=== PATIENT | female | born 1995 | race American Indian/Alaskan Native ===

== ENCOUNTER 2018-07-18 11:10 | Emergency (ER) | payer OTHER ==
[2018-07-18 11:31] VITALS: BP 110/61
[2018-07-18 12:11] LABS: HCG Qualitative,Urine Negative (Negative)
[2018-07-18 12:14] LABS: Bilirubin,Urine NEG (Negative); Blood,Urine NEG (Negative); Color,Urine Yellow (Yellow); Mucus,Urine 3+ /HPF; Protein,Urine <15 mg/dL mg/dL (Negative)
--- NOTE | 2018-07-18 13:47 | Emergency Department Report ---
ED Abdominal Pain HPI - General Chief Complaint: Abdominal Pain Stated Complaint: ABD PAIN Time Seen by Provider: 07/18/18 12:54 Source: patient Mode of arrival: Ambulatory Limitations: No Limitations - History of Present Illness Initial Comments: 22-year-old female reports lower abdominal pain 2-3 weeks. Patient reports constipation for same time. Patient states has had problems in the past with constipation. States she tried MiraLAX at home without relief. Denies nausea, vomiting, fever. Patient reports foul smell the last time she had her menstrual cycle. However, patient denies any foul smell or vaginal discharge at this time. MD Complaint: abdominal pain -: week(s) (3) Location: suprapubic Radiation: none Migration to: no migration Severity: mild Quality: aching Consistency: intermittent Improves With: nothing Worsens With: nothing Associated Symptoms: dysuria. denies: nausea, vomiting, diarrhea, fever - Related Data Previous Rx's Medication Instructions Recorded Last Taken Type Docusate Sodium [Colace] 100 mg PO BID PRN #20 capsule 07/18/18 Unknown Rx Phenazopyridine [Pyridium] 200 mg PO BID #6 tab 07/18/18 Unknown Rx Sodium Phosphate,Napa-Dibasic 133 ml RC ONCE #1 enema 07/18/18 Unknown Rx [Fleet Enema] Sulfamethoxazole/Trimethoprim 1 each PO BID #6 tablet 07/18/18 Unknown Rx [Bactrim DS TAB] Allergies Allergy/AdvReac Type Severity Reaction Status Date / Time No Known Allergies Allergy Unverified 07/18/18 11:28 ED Review of Systems ROS: Stated complaint: ABD PAIN Other details as noted in HPI Comment: All other systems reviewed and negative Constitutional: denies: chills, fever Gastrointestinal: abdominal pain, constipation. denies: nausea, vomiting, diarrhea Genitourinary: dysuria. denies: frequency, hematuria, discharge ED Past Medical Hx - Past Medical History Previous Medical History?: No - Surgical History Past Surgical History?: No - Social History Smoking Status: Never Smoker Substance Use Type: None - Medications Home Medications: Home Medications Medication Instructions Recorded Confirmed Last Taken Type Docusate Sodium [Colace] 100 mg PO BID PRN #20 capsule 07/18/18 Unknown Rx Phenazopyridine [Pyridium] 200 mg PO BID #6 tab 07/18/18 Unknown Rx Sodium Phosphate,[place]-Dibasic 133 ml RC ONCE #1 enema 07/18/18 Unknown Rx [Fleet Enema] Sulfamethoxazole/Trimethoprim 1 each PO BID #6 tablet 07/18/18 Unknown Rx [Bactrim DS TAB] ED Physical Exam - General Limitations: No Limitations General appearance: alert, in no apparent distress - Head Head exam: Present: atraumatic, normocephalic - Eye Eye exam: Present: normal appearance - ENT ENT exam: Present: mucous membranes moist - Neck Neck exam: Present: normal inspection - Respiratory Respiratory exam: Present: normal lung sounds bilaterally. Absent: respiratory distress - Cardiovascular Cardiovascular Exam: Present: regular rate, normal rhythm - GI/Abdominal GI/Abdominal exam: Present: soft. Absent: distended, tenderness - Extremities Exam Extremities exam: Present: normal inspection - Neurological Exam Neurological exam: Present: alert, oriented X3 - Psychiatric Psychiatric exam: Present: normal affect, normal mood - Skin Skin exam: Present: warm, dry, intact, normal color ED Course Vital Signs 07/18/18 11:28 Temperature 99.1 F Pulse Rate 88 Respiratory 18 Rate Blood Pressure 110/61 O2 Sat by Pulse 98 Oximetry ED Medical Decision Making - Medical Decision Making 22-year-old female with constipation and mild suprapubic pain. UA shows evidence of UTI. Will give prescription for antibiotics. Will also give prescription for enema and stool softeners. Patient given return precautions and advised outpatient follow-up - Differential Diagnosis UTI, , constipation Critical care attestation.: If time is entered above; I have spent that time in minutes in the direct care of this critically ill patient, excluding procedure time. ED Disposition Clinical Impression: Constipation, UTI (urinary tract infection) Disposition: TO HOME OR SELFCARE Is pt being admited?: No Condition: Stable Instructions: Urinary Tract Infection in Women (ED), Constipation (ED), High Fiber Diet (ED) Prescriptions: Docusate Sodium [Colace] 100 mg PO BID PRN #20 capsule PRN Reason: Constipation Phenazopyridine [Pyridium] 200 mg PO BID #6 tab Sodium Phosphate,Napa-Dibasic [Fleet Enema] 133 ml RC ONCE #1 enema Sulfamethoxazole/Trimethoprim [Bactrim DS TAB] 1 each PO BID #6 tablet Referrals: [facility] [Provider Group] - 3-5 Days Time of Disposition: 13:50
== END 2018-07-18 14:04 | disposition home or self-care (01) ==
LOC: ED 11:10
DX: N39.0 Urinary tract infection, site not specified (principal); K59.00 Constipation, unspecified
CPT/HCPCS: 81001; 81025; 99283